=== PATIENT | male | born 1990 | race Caucasian/White ===

== ENCOUNTER 2017-05-15 21:22 | Emergency (ER) | payer OTHER ==
[2017-05-15] MEDS ORDERED: Ondansetron 4 MG Tab.DIS PO ONE (22:09)
[2017-05-15] MEDS ORDERED: Pantoprazole 40 MG Tab.CR PO SCH (22:12)
--- NOTE | 2017-05-15 22:16 | EDM.PDOC ---
ED HPI GENERAL MEDICAL PROBLEM - General Chief Complaint: Drug or Alcohol Abuse Stated Complaint: SHAKY, NOT FEELING GOOD Time Seen by Provider: 05/15/17 22:00 Source of Information: Reports: Patient History Limitations: Reports: No Limitations - History of Present Illness INITIAL COMMENTS - FREE TEXT/NARRATIVE: Rocky comes to [facility] ED with sxs of GI upset, tremors, and anxiety since a 5 day binge on ETOH over an argument with his girlfriend. He is reporting some lower abdominal pain, but no epigastric pain. He reports emesis of any fluids consumed this pm, and concerns his stomach may bleed as has happened with ETOH use in the past. He is on no prescription meds, and has tried no OTC meds for sxs relief. He denies other illicit abuse. - Related Data Allergies Allergy/AdvReac Type Severity Reaction Status Date / Time No Known Allergies Allergy Verified 05/15/17 21:46 Home Meds: Home Meds NK [No Known Home Meds] 05/15/17 [History] Past Medical History - Past Health History Medical/Surgical History: Denies Medical/Surgical History Gastrointestinal History: Reports: Gastritis Psychiatric History: Reports: Other (See Below) (ETOH abuse) Social & Family History - Tobacco Use Smoking Status *Q: Never Smoker - Caffeine Use Caffeine Use: Reports: Coffee, Energy Drinks, Soda, Tea - Recreational Drug Use Recreational Drug Use: No ED ROS GENERAL - Review of Systems Review Of Systems: See Below Constitutional: Reports: No Symptoms, Decreased Appetite HEENT: Reports: No Symptoms Respiratory: Reports: No Symptoms Cardiovascular: Reports: No Symptoms Endocrine: Reports: No Symptoms GI/Abdominal: Reports: Abdominal Pain, Nausea, Vomiting : Reports: No Symptoms Musculoskeletal: Reports: No Symptoms Skin: Reports: No Symptoms Neurological: Reports: No Symptoms Psychiatric: Reports: Anxiety Hematologic/Lymphatic: Reports: No Symptoms Immunologic: Reports: No Symptoms ED EXAM, GENERAL - Physical Exam Exam: See Below Exam Limited By: No Limitations General Appearance: Alert, WD/WN, No Apparent Distress, Anxious Eye Exam: Bilateral Eye: Normal Inspection, PERRL Ears: Normal External Exam Nose: Normal Inspection Throat/Mouth: Normal Inspection, Normal Oropharynx Head: Normocephalic Neck: Normal Inspection, Supple, Non-Tender Respiratory/Chest: No Respiratory Distress, Lungs Clear, Normal Breath Sounds Cardiovascular: Regular Rate, Rhythm GI/Abdominal: Normal Bowel Sounds, Soft, Non-Tender, No Organomegaly, No Distention, No Mass (Male) Exam: Deferred Rectal (Males) Exam: Deferred Back Exam: Normal Inspection Extremities: Normal Inspection Neurological: Alert, Oriented, CN II-XII Intact, Normal Gait, No Motor/Sensory Deficits Psychiatric: Normal Affect, Anxious Skin Exam: Warm, Dry, Intact Lymphatic: No Adenopathy Course - Vital Signs Text/Narrative:: Following assession at the [facility] ED, Rocky was administered Zofran 4mg ODT and Protonix 40 mg po pending results of UA and drug screen, positive for cannabis. He remained clinically stable and took oral fluids without difficulty. Last Recorded V/S: Last Vital Signs Temp 36.8 C 05/15/17 21:56 Pulse 89 05/15/17 21:56 Resp 20 05/15/17 21:56 BP 154/106 H 05/15/17 21:56 Pulse Ox 98 05/15/17 21:56 - Orders/Labs/Meds Orders: Active Orders 24 hr Category Date Time Status Pantoprazole [ProTONIX] Med 05/15/17 22:12 Active 40 mg PO 0600 Medication Orders Pantoprazole Sodium (Protonix) 40 mg PO 0600 ALISTAIR Last Admin: 05/15/17 22:20 Dose: 40 mg Labs: Laboratory Tests 05/15/17 05/15/17 Range/Units 22:10 22:10 Urine Color [place] (YELLOW) Urine Appearance Slightly cloudy (CLEAR) Urine pH 5.0 (5.0-6.5) Ur Specific [place] 1.020 (1.010-1.025) Urine Protein 30 H (NEGATIVE) mg/dL Urine Glucose (UA) Normal (NEGATIVE) mg/dL Urine Ketones 15 H (NEGATIVE) mg/dL Urine Occult Blood Negative (NEGATIVE) Urine Nitrite Negative (NEGATIVE) Urine Bilirubin Small H (NEGATIVE) Urine Urobilinogen 4 H (NEGATIVE) mg/dL Ur Leukocyte Esterase Small H (NEGATIVE) Urine RBC 0-5 (0) Urine WBC 0-5 (0) Ur Squamous Epith Cells Occasional (NS,R,O) Urine Bacteria Few H (NS) Urine Mucus Many H (NS) Urine Opiates Screen Negative (NEGATIVE) Ur Oxycodone Screen Negative (NEGATIVE) Ur Propoxyphene Screen Negative (NEGATIVE) Ur Barbituates Screen Negative (NEGATIVE) Ur Tricyclics Screen Negative (NEGATIVE) Ur Phencyclidine Scrn Negative (NEGATIVE) Ur Amphetamine Screen Negative (NEGATIVE) Urine MDMA Screen Negative (NEGATIVE) U Benzodiazepines Scrn Negative (NEGATIVE) U Cocaine Metab Screen Negative (NEGATIVE) U Marijuana (THC) Screen Positive H (NEGATIVE) Meds: Medications Generic Name Dose Route Start Last Admin Trade Name Freq PRN Reason Stop Dose Admin Pantoprazole Sodium 40 mg 05/15/17 22:12 05/15/17 22:20 Protonix PO 40 mg 0600 ALISTAIR Administration Discontinued Medications Generic Name Dose Route Start Last Admin Trade Name Freq PRN Reason Stop Dose Admin Ondansetron HCl 4 mg 05/15/17 22:09 05/15/17 22:20 Zofran Odt PO 05/15/17 22:10 4 mg ONETIME ONE Administration Pantoprazole Sodium 40 mg 05/16/17 06:00 Protonix PO 0600 ALISTAIR Departure - Departure Time of Disposition: 22:35 Disposition: Home, Self-Care 01 Condition: Good Clinical Impression: Alcohol abuse Alcoholic gastritis Qualifiers: Chronicity: unspecified Gastritis bleeding: without bleeding Qualified Code(s) : K29.20 - Alcoholic gastritis without bleeding - Discharge Information Instructions: Gastritis, Adult, [id number] Referrals: PCP,None [Primary Care Provider] - Forms: ED Department Discharge Additional Instructions: Take sips of fluid. Do not drink any alcohol. Follow-up with PCP as needed. - Problem List & Annotations (1) Alcohol abuse SNOMED Code(s): 18980271 Code(s): F10.10 - ALCOHOL ABUSE, UNCOMPLICATED Status: Acute Current Visit: Yes Annotation/Comment:: Follow up with AA. (2) Alcoholic gastritis SNOMED Code(s): 8038069 Code(s): K29.20 - ALCOHOLIC GASTRITIS WITHOUT BLEEDING Status: Acute Current Visit: Yes Annotation/Comment:: Sips and chips tonight, advance diet as tolerated tomorow. Qualifiers: Chronicity: unspecified Gastritis bleeding: without bleeding Qualified Code(s): K29.20 - Alcoholic gastritis without bleeding - Problem List Review Problem List Initiated/Reviewed/Updated: Yes - My Orders Last 24 Hours: My Active Orders 05/15/17 22:12 Pantoprazole [ProTONIX] 40 mg PO 0600 - Assessment/Plan Last 24 Hours: My Active Orders 05/15/17 22:12 Pantoprazole [ProTONIX] 40 mg PO 0600 Plan: A note for work was provided. Follow up with PCP if needed.
[2017-05-16] MEDS ORDERED: Pantoprazole 40 MG Tab.CR PO SCH (06:00)
== END 2017-05-15 22:39 | disposition home or self-care (01) ==
LOC: FB.ED 21:22
DX: K29.20 Alcoholic gastritis without bleeding (principal); F10.10 Alcohol abuse, uncomplicated
CPT/HCPCS: 80305; 81001; 99284; A9270

== ENCOUNTER → 2018-08-09 | Emergency (ER) | payer OTHER | LOC: FB.ED 14:39 | DX: Z53.21 Procedure and treatment not carried out due to patient leaving prior to being seen by health care provider (principal) ==

== ENCOUNTER 2018-08-10 06:13 | Emergency (ER) | payer OTHER ==
--- NOTE | 2018-08-10 06:42 | EDM.PDOC ---
ED HPI GENERAL MEDICAL PROBLEM - General Chief Complaint: General Stated Complaint: BP HIGH,IRREGULAR HEARTBEAT Time Seen by Provider: 08/10/18 06:33 Source of Information: Reports: Patient History Limitations: Reports: Intoxication - History of Present Illness INITIAL COMMENTS - FREE TEXT/NARRATIVE: 27 y.o.w.m came to the ed this am because of insomnia since 1 am today. 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 He was referred to the walk in clinic in order to prevent an ED charge, as per advice from the Hospitalist. No N/V/D, no dizziness no chest pain or any other acute medical issues. BP 122/78 Pulse 71 RR 17 Pulse ox 100% on RA. Temp 36.8 Onset Date: 08/10/18 Onset Time: 01:00 Duration: Hour(s): Location: Reports: Generalized Severity: Mild Improves with: Reports: None Worsens with: Reports: None Context: Reports: Other (pt asaid he was bench drinking, unable to sleep since 1 am, had palpitations) Associated Symptoms: Reports: No Other Symptoms - Related Data Allergies Allergy/AdvReac Type Severity Reaction Status Date / Time No Known Allergies Allergy Verified 08/10/18 06:32 Home Meds: Home Meds NK [No Known Home Meds] 05/28/18 [History] Past Medical History Gastrointestinal History: Reports: Gastritis Psychiatric History: Reports: Other (See Below) (ETOH abuse) Other Psychiatric History: has been drinking heavily x past 4 days. Endocrine/Metabolic History: Reports: Obesity/BMI 30+ Social & Family History - Family History Family Medical History: Noncontributory - Caffeine Use Caffeine Use: Reports: Coffee ED ROS GENERAL - Review of Systems Review Of Systems: See Below Constitutional: Reports: No Symptoms HEENT: Reports: No Symptoms Respiratory: Reports: No Symptoms Cardiovascular: Reports: Palpitations Endocrine: Reports: No Symptoms GI/Abdominal: Reports: No Symptoms : Reports: No Symptoms Musculoskeletal: Reports: No Symptoms Skin: Reports: No Symptoms Neurological: Reports: No Symptoms Psychiatric: Reports: No Symptoms Hematologic/Lymphatic: Reports: No Symptoms Immunologic: Reports: No Symptoms ED EXAM, GENERAL - Physical Exam Exam: See Below Exam Limited By: No Limitations General Appearance: Alert, WD/WN, No Apparent Distress Eye Exam: Bilateral Eye: Normal Inspection Ears: Normal External Exam Ear Exam: Bilateral Ear: Auricle Normal Nose: Normal Inspection, Normal Mucosa, No Blood Throat/Mouth: Normal Lips, Normal Voice, No Airway Compromise Head: Atraumatic, Normocephalic Neck: Normal Inspection, Supple, Non-Tender, Full Range of Motion Respiratory/Chest: No Respiratory Distress, Lungs Clear, Normal Breath Sounds, Chest Non-Tender Cardiovascular: Normal Peripheral Pulses, Regular Rate, Rhythm, No Edema, No Gallop Peripheral Pulses: 1+: Brachial (R) GI/Abdominal: Normal Bowel Sounds, Soft, Non-Tender, No Organomegaly, No Mass, Pelvis Stable (Male) Exam: Deferred Rectal (Males) Exam: Deferred Back Exam: Normal Inspection, Full Range of Motion Extremities: Normal Inspection, Normal Range of Motion, Non-Tender, No Pedal Edema Neurological: Alert, Oriented, CN II-XII Intact, Normal Cognition, Normal Gait Psychiatric: Normal Affect, Normal Mood Skin Exam: Warm, Dry, Intact, Normal Color, No Rash Lymphatic: No Adenopathy Course - Vital Signs Text/Narrative:: 27 y.o.w.m came to the ed this am because of insomnia since 1 am today. 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 He was referred to the walk in clinic in order to prevent an ED charge, as per advice from the Hospitalist. No N/V/D, no dizziness no chest pain or any other acute medical issues. BP 122/78 Pulse 71 RR 17 Pulse ox 100% on RA. Temp 36.8 PE: WNWD W M in NAD C/O Hear palpitation after drinking, was ambulating well, requesting I.V fluids Labs: refused ECG: refused Impression: H/O ETOH abuse, H/O insomnia, eloped from the ED Tx: refused Reexam: After the pt was examined, he said "safe your ECG" and eloped from the ED Plan: Left AMA without signing the AMA form the ED Last Recorded V/S: Last Vital Signs Temp 36.8 C 08/10/18 06:33 Pulse Resp 17 08/10/18 06:33 BP 122/78 08/10/18 06:33 Pulse Ox 100 08/10/18 06:33 Departure - Departure Time of Disposition: 06:42 Disposition: Against Medical Advice 07 Condition: Good Clinical Impression: Insomnia Qualifiers: Insomnia type: unspecified Qualified Code(s): G47.00 - Insomnia, unspecified - Discharge Information Referrals: PCP,None [Primary Care Provider] - Forms: ED Department Discharge
== END 2018-08-10 06:37 | disposition left against medical advice (07) ==
LOC: FB.ED 06:13
DX: G47.00 Insomnia, unspecified (principal); F10.10 Alcohol abuse, uncomplicated
CPT/HCPCS: 99284

== ENCOUNTER 2018-09-14 10:43 | Inpatient (IN) | payer OTHER ==
[2018-09-14] MEDS ORDERED: Ondansetron 4 MG/2 ML SDV IVPUSH ONE (10:47)
[2018-09-14] MEDS ORDERED: Pantoprazole 40 MG Vial IVPUSH ONE (10:48)
[2018-09-14] MEDS ORDERED: LORazepam 2 MG/ML SDV IVPUSH ONE (10:51)
--- NOTE | 2018-09-14 10:51 | EDM.PDOC ---
ED HPI GENERAL MEDICAL PROBLEM - General Chief Complaint: Gastrointestinal Problem Stated Complaint: VOMITING BLOOD Time Seen by Provider: 09/14/18 10:49 Source of Information: Reports: Patient, EMS History Limitations: Reports: No Limitations - History of Present Illness INITIAL COMMENTS - FREE TEXT/NARRATIVE: Patient presents with coffee ground emesis x 3, onset today. Denies abdominal pain. Has been drinking whiskey 1L per day x 8 days. Patient feels tremulous. Last EtOH intake was last night. No prior h/o GI bleed, has never had an endoscopy. Onset: Today Duration: Day(s): (1) - Related Data Allergies Allergy/AdvReac Type Severity Reaction Status Date / Time No Known Allergies Allergy Verified 09/14/18 10:51 Home Meds: Home Meds NK [No Known Home Meds] 05/28/18 [History] Past Medical History Cardiovascular History: Denies: CAD Gastrointestinal History: Denies: GI Bleed Psychiatric History: Reports: Other (See Below) (h/o alcohol abuse, was admitted to detox 3 years ago) Social & Family History - Family History Family Medical History: Noncontributory - Tobacco Use Smoking Status *Q: Never Smoker - Caffeine Use Caffeine Use: Reports: Coffee - Alcohol Use Alcohol Use Frequency: Binges - Recreational Drug Use Recreational Drug Use: No ED ROS GENERAL - Review of Systems Review Of Systems: ROS reveals no pertinent complaints other than HPI. ED EXAM, GI/ABD - Physical Exam Exam: See Below Exam Limited By: No Limitations General Appearance: Alert, Other (appears tremulous) Ears: Normal External Exam Nose: Normal Inspection Throat/Mouth: No Airway Compromise Head: Atraumatic, Normocephalic Neck: Full Range of Motion Respiratory/Chest: No Respiratory Distress, Lungs Clear, Normal Breath Sounds Cardiovascular: Regular Rate, Rhythm, No Murmur GI/Abdominal Exam: Normal Bowel Sounds, Soft, Non-Tender, No Organomegaly, No Distention Back Exam: Full Range of Motion Extremities: Normal Inspection Neurological: Alert, Normal Cognition, No Motor/Sensory Deficits Psychiatric: Anxious Skin Exam: Warm, Dry, Intact, Normal Color EKG INTERPRETATION EKG Date: 09/14/18 Time: 11:11 Rhythm: NSR Rate (Beats/Min): 74 [place]: Normal P-Wave: Present QRS: Normal ST-T: Other (ST elevation, early repolarization pattern) Course - Vital Signs Last Recorded V/S: Last Vital Signs Temp 37.0 C 09/14/18 10:43 Pulse 93 09/14/18 10:43 Resp 18 09/14/18 10:43 BP 136/88 09/14/18 10:43 Pulse Ox 98 09/14/18 10:43 - Orders/Labs/Meds Orders: Active Orders 24 hr Category Date Time Status Admission Status [Patient Status] [ADT] Routine ADT 09/14/18 11:54 Ordered Cardiac Monitoring [RC] CONTINUOUS Care 09/14/18 11:54 Ordered EKG Documentation Completion [RC] ASDIRECTED Care 09/14/18 10:46 Active TYPE AND SCREEN [BBK] Stat Lab 09/14/18 10:55 Received MVI, Adult with Vitamin K [Infuvite Adult] 10 ml Med 09/14/18 11:00 Active Thiamine [Vitamin B-1] 100 mg Folic Acid 1 mg Magnesium Sulfate [Magnesium Sulfate 50%] 2 gm Sodium Chloride 0.9% [Normal Saline] 1,000 ml IV ASDIRECTED Pantoprazole [ProTONIX IV] 80 mg Med 09/14/18 11:00 Active Sodium Chloride 0.9% [Normal Saline] 100 ml IV .Continuous Sodium Chloride 0.9% [Saline Flush] Med 09/14/18 10:51 Active 10 ml FLUSH ASDIRECTED PRN Saline Lock Insert [OM.PC] Routine Oth 09/14/18 10:51 Ordered EKG 12 Lead [EK] Routine Ther 09/14/18 10:45 Ordered Medication Orders Multivitamins/Minerals 10 ml/Thiamine HCl 100 mg/ Folic Acid 1 mg/ Magnesium Sulfate 2 gm/ Sodium Chloride 1,015.2 mls @ 500 mls/hr IV ASDIRECTED ALISTAIR Last Admin: 09/14/18 11:38 Dose: 500 mls/hr Pantoprazole Sodium 80 mg/ (Sodium Chloride) 100 mls @ 10 mls/hr IV .Continuous ALISTAIR Last Admin: 09/14/18 11:26 Dose: 10 mls/hr Sodium Chloride (Saline Flush) 10 ml FLUSH ASDIRECTED PRN PRN Reason: Keep Vein Open Last Admin: 09/14/18 11:18 Dose: 10 ml Admin: 09/14/18 11:06 Dose: 10 ml Admin: 09/14/18 11:05 Dose: 10 ml Labs: Laboratory Tests 09/14/18 09/14/18 09/14/18 Range/Units 10:55 10:55 10:55 WBC 4.7 (4.5-12.0) X10-3/uL RBC 4.86 (4.30-5.75) x10(6)uL Hgb 14.3 (13.5-17.8) g/dL Hct 42.9 (30.0-51.3) % MCV 88.2 (80-96) fL MCH 29.5 (27.7-33.6) pg MCHC 33.4 (32.2-35.4) g/dL RDW 14.0 (11.5-15.5) % Plt Count 228 (125-369) X10(3)uL MPV 7.6 (7.4-10.4) fL Neut % (Auto) 58.6 (46-82) % Lymph % (Auto) 33.9 (13-37) % [place] % (Auto) 4.6 (4-12) % Eos % (Auto) 2 (1.0-5.0) % Baso % (Auto) 1 (0-2) % Neut # (Auto) 2.8 (1.6-8.3) # Lymph # (Auto) 1.6 (0.6-5.0) # [place] # (Auto) 0.2 (0.0-1.3) # Eos # (Auto) 0.1 (0.0-0.8) # Baso # (Auto) 0.0 (0.0-0.2) # PT (8.7-11.1) INR (0.89-1.13) Sodium 141 (135-145) mmol/L Potassium 3.6 (3.5-5.3) mmol/L Chloride 102 (100-110) mmol/L Carbon Dioxide 27 (21-32) mmol/L BUN 13 (7-18) mg/dL Creatinine 0.8 (0.70-1.30) mg/dL Est Cr Clr Drug Dosing TNP Estimated GFR (MDRD) > 60 (>60) BUN/Creatinine Ratio 16.3 (9-20) Glucose 104 (80-116) mg/dL Calcium 8.1 L (8.6-10.2) mg/dL Magnesium 1.7 L (1.8-2.5) mg/dL Total Bilirubin 0.6 (0.1-1.3) mg/dL AST 20 D (5-25) IU/L ALT 24 D (12-36) U/L Alkaline Phosphatase 79 (56-112) IU/L Total Protein 7.1 (6.0-8.0) g/dL Albumin 3.9 (3.5-5.2) g/dL Globulin 3.2 g/dL Albumin/Globulin Ratio 1.2 Ethyl Alcohol 0.09 H (<0.03) % 09/14/18 Range/Units 10:55 WBC (4.5-12.0) X10-3/uL RBC (4.30-5.75) x10(6)uL Hgb (13.5-17.8) g/dL Hct (30.0-51.3) % MCV (80-96) fL MCH (27.7-33.6) pg MCHC (32.2-35.4) g/dL RDW (11.5-15.5) % Plt Count (125-369) X10(3)uL MPV (7.4-10.4) fL Neut % (Auto) (46-82) % Lymph % (Auto) (13-37) % [place] % (Auto) (4-12) % Eos % (Auto) (1.0-5.0) % Baso % (Auto) (0-2) % Neut # (Auto) (1.6-8.3) # Lymph # (Auto) (0.6-5.0) # [place] # (Auto) (0.0-1.3) # Eos # (Auto) (0.0-0.8) # Baso # (Auto) (0.0-0.2) # PT 10.3 (8.7-11.1) INR 1.06 (0.89-1.13) Sodium (135-145) mmol/L Potassium (3.5-5.3) mmol/L Chloride (100-110) mmol/L Carbon Dioxide (21-32) mmol/L BUN (7-18) mg/dL Creatinine (0.70-1.30) mg/dL Est Cr Clr Drug Dosing Estimated GFR (MDRD) (>60) BUN/Creatinine Ratio (9-20) Glucose (80-116) mg/dL Calcium (8.6-10.2) mg/dL Magnesium (1.8-2.5) mg/dL Total Bilirubin (0.1-1.3) mg/dL AST (5-25) IU/L ALT (12-36) U/L Alkaline Phosphatase (56-112) IU/L Total Protein (6.0-8.0) g/dL Albumin (3.5-5.2) g/dL Globulin g/dL Albumin/Globulin Ratio Ethyl Alcohol (<0.03) % Meds: Medications Generic Name Dose Route Start Last Admin Trade Name Freq PRN Reason Stop Dose Admin Multivitamins/Minerals 10 ml/ 1,015.2 mls @ 500 mls/hr 09/14/18 11:00 11:38 Thiamine HCl 100 mg/ Folic IV 500 mls/hr Acid 1 mg/ Magnesium Sulfate 2 ASDIRECTED ALISTAIR Administration gm/ Sodium Chloride Pantoprazole Sodium 80 mg/ 100 mls @ 10 mls/hr 09/14/18 11:00 09/14/18 11:26 Sodium Chloride IV 10 mls/hr .Continuous ALISTAIR Administration Sodium Chloride 10 ml 09/14/18 10:51 09/14/18 11:18 Saline Flush FLUSH 10 ml ASDIRECTED PRN Administration Keep Vein Open Discontinued Medications Generic Name Dose Route Start Last Admin Trade Name Freq PRN Reason Stop Dose Admin Lorazepam 1 mg 09/14/18 10:51 09/14/18 10:57 Ativan IVPUSH 09/14/18 10:52 1 mg .ONCE ONE Administration Ondansetron HCl 4 mg 09/14/18 10:47 09/14/18 10:59 Zofran IVPUSH 09/14/18 10:48 4 mg ONETIME ONE Administration Pantoprazole Sodium 80 mg 09/14/18 10:48 09/14/18 11:03 Protonix Iv IVPUSH 09/14/18 10:49 80 mg .BOLUS ONE Administration - Re-Assessments/Exams Free Text/Narrative Re-Assessment/Exam: 09/14/18 11:[address] Lan, will consult and do EGD tomorrow morning. Will admit to [facility] hospitalist service, Dr. Maldonado. Departure - Departure Time of Disposition: 11:59 Disposition: Refer to Observation Clinical Impression: Gastrointestinal hemorrhage Qualifiers: GI bleed type/associated pathology: gastrointestinal hemorrhage with hematemesis Qualified Code(s): K92.0 - Hematemesis Alcohol withdrawal Qualifiers: Complication of substance-induced condition: uncomplicated Qualified Code(s): F10.230 - Alcohol dependence with withdrawal, uncomplicated - Discharge Information *PRESCRIPTION DRUG MONITORING PROGRAM REVIEWED*: No *COPY OF PRESCRIPTION DRUG MONITORING REPORT IN PATIENT SALEEM: Not Applicable Referrals: PCP,None [Primary Care Provider] - Forms: ED Department Discharge - My Orders Last 24 Hours: My Active Orders 09/14/18 10:45 EKG 12 Lead [EK] Routine 09/14/18 10:46 EKG Documentation Completion [RC] ASDIRECTED 09/14/18 10:51 Sodium Chloride 0.9% [Saline Flush] 10 ml FLUSH ASDIRECTED PRN Saline Lock Insert [OM.PC] Routine 09/14/18 10:55 TYPE AND SCREEN [BBK] Stat 09/14/18 11:00 MVI, Adult with Vitamin K [Infuvite Adult] 10 ml Thiamine [Vitamin B-1] 100 mg Folic Acid 1 mg Magnesium Sulfate [Magnesium Sulfate 50%] 2 gm Sodium Chloride 0.9% [Normal Saline] 1,000 ml IV ASDIRECTED Pantoprazole [ProTONIX IV] 80 mg Sodium Chloride 0.9% [Normal Saline] 100 ml IV .Continuous 09/14/18 11:54 Admission Status [Patient Status] [ADT] Routine Cardiac Monitoring [RC] CONTINUOUS - Assessment/Plan Last 24 Hours: My Active Orders 09/14/18 10:45 EKG 12 Lead [EK] Routine 09/14/18 10:46 EKG Documentation Completion [RC] ASDIRECTED 09/14/18 10:51 Sodium Chloride 0.9% [Saline Flush] 10 ml FLUSH ASDIRECTED PRN Saline Lock Insert [OM.PC] Routine 09/14/18 10:55 TYPE AND SCREEN [BBK] Stat 09/14/18 11:00 MVI, Adult with Vitamin K [Infuvite Adult] 10 ml Thiamine [Vitamin B-1] 100 mg Folic Acid 1 mg Magnesium Sulfate [Magnesium Sulfate 50%] 2 gm Sodium Chloride 0.9% [Normal Saline] 1,000 ml IV ASDIRECTED Pantoprazole [ProTONIX IV] 80 mg Sodium Chloride 0.9% [Normal Saline] 100 ml IV .Continuous 09/14/18 11:54 Admission Status [Patient Status] [ADT] Routine Cardiac Monitoring [RC] CONTINUOUS
[2018-09-14] MEDS ORDERED: MVI, Adult with Vitamin K 10 ML, Thiamine 100 MG, Folic Acid 1 MG, Magnesium Sulfate 2 ... IV SCH ×5 (11:00)
[2018-09-14] MEDS ORDERED: Pantoprazole 80 MG in Sodium Chloride 0.9% 100 ML IV SCH (11:00)
[2018-09-14] MEDS: Sodium Chloride 0.9% 10 ML Syringe FLUSH PRN ×3 (11:05→11:18)
[2018-09-14] MEDS ORDERED: Midazolam 1 MG/ML 2 ML SDV IV ONE (11:14)
[2018-09-14] MEDS ORDERED: Propofol 200 MG/20 ML SDV IV ONE (11:14)
[2018-09-14] MEDS ORDERED: Lidocaine 2% 100 MG/5 ML Syringe IVPUSH ONE (11:14)
[2018-09-14] MEDS ORDERED: Ondansetron 4 MG/2 ML SDV IVPUSH PRN (12:20)
[2018-09-14] MEDS ORDERED: LORazepam 2 MG/ML SDV IV SCH (12:30)
[2018-09-14] MEDS: Sodium Chloride 0.9% 1,000 ML IV SCH (14:05)
--- NOTE | 2018-09-14 15:50 | PCM.HP ---
H&P History of Present Illness - General Date of Service: 09/14/18 Admit Problem/Dx: Admission Diagnosis/Problem Admission Diagnosis/Problem Gastrointestinal hemorrhage Source of Information: Patient - History of Present Illness Initial Comments - Free Text/Narative: Rocky is a 27 years old male with PMHx of alcohol use disorder, anxiety and depression who presented to ER today with vomiting blood. Patient has been drinking wiskey, beer, and vodka for the last few days, his last drink was around 3 am this morning (09/14/2018). her reports waking up around 8 am, and start vomiting. he noticed dark blood/coffee ground in his vomit. He reports that he vomited twice this morning. he denies abdominal pain. reports nausea, but no vomiting since this morning. he endorse shaking, anxiety and difficultly sleeping. he reports not taking any illicit drugs. he is generally healthy. He denies any previous similar symptoms. he denies withdrawal seizure. Onset of Symptoms: Reports: Today - Related Data Allergies/Adverse Reactions: Allergies Allergy/AdvReac Type Severity Reaction Status Date / Time No Known Allergies Allergy Verified 09/14/18 10:51 Home Medications: Home Meds NK [No Known Home Meds] 05/28/18 [History] Past Medical History - Past Health History Medical/Surgical History: Denies Medical/Surgical History Cardiovascular History: Denies: CAD Gastrointestinal History: Reports: Jaundice, Other (See Below) Other Gastrointestinal History: liver damage Psychiatric History: Reports: Addiction, Other (See Below) Other Psychiatric History: has had IP admission for alcohol abuse Endocrine/Metabolic History: Reports: Obesity/BMI 30+ Social & Family History - Family History Family Medical History: Noncontributory - Tobacco Use Smoking Status *Q: Never Smoker - Caffeine Use Caffeine Use: Reports: Coffee - Alcohol Use Date of Last Drink: 09/13/18 - Recreational Drug Use Recreational Drug Use: No H&P Review of Systems - Review of Systems: Review Of Systems: See Below HEENT: Reports: No Symptoms Pulmonary: Reports: No Symptoms Cardiovascular: Reports: No Symptoms Gastrointestinal: Reports: Hematemesis, Nausea, Vomiting Genitourinary: Reports: No Symptoms Musculoskeletal: Reports: No Symptoms Skin: Reports: No Symptoms Psychiatric: Reports: Depression, Anxiety Neurological: Reports: No Symptoms Hematologic/Lymphatic: Reports: No Symptoms Immunologic: Reports: No Symptoms Exam - Exam Exam: See Below - Vital Signs Vital Signs: Last Vital Signs Temp 36.8 C 09/14/18 12:40 Pulse 93 09/14/18 10:43 Resp 17 09/14/18 12:40 BP 129/87 09/14/18 12:40 Pulse Ox 98 09/14/18 12:40 Weight: 94.302 kg - Exam General: Alert, Oriented, Cooperative HEENT: PERRLA, Conjunctiva Clear, EOMI, Mucosa Moist & [place], Pupils Equal, Pupils Reactive Neck: Supple Lungs: Clear to Auscultation, Normal Respiratory Effort Cardiovascular: Regular Rate, Regular Rhythm GI/Abdominal Exam: Normal Bowel Sounds, Soft, Non-Tender, No Organomegaly, No Distention Back Exam: Normal Inspection, Full Range of Motion Extremities: Normal Inspection, Normal Range of Motion, Non-Tender, No Pedal Edema, Normal Capillary Refill Skin: Warm Neurological: Strength Equal Bilateral, Normal Speech, Normal Tone Neuro Extensive - Mental Status: Alert, Oriented x3, Normal Mood/Affect Psychiatric: Alert, Anxious - Patient Data Lab Results Last 24 hrs: Laboratory Results - last 24 hr 09/14/18 09/14/18 09/14/18 Range/Units 10:55 10:55 10:55 WBC 4.7 (4.5-12.0) X10-3/uL RBC 4.86 (4.30-5.75) x10(6)uL Hgb 14.3 (13.5-17.8) g/dL Hct 42.9 (30.0-51.3) % MCV 88.2 (80-96) fL MCH 29.5 (27.7-33.6) pg MCHC 33.4 (32.2-35.4) g/dL RDW 14.0 (11.5-15.5) % Plt Count 228 (125-369) X10(3)uL MPV 7.6 (7.4-10.4) fL Neut % (Auto) 58.6 (46-82) % Lymph % (Auto) 33.9 (13-37) % [place] % (Auto) 4.6 (4-12) % Eos % (Auto) 2 (1.0-5.0) % Baso % (Auto) 1 (0-2) % Neut # (Auto) 2.8 (1.6-8.3) # Lymph # (Auto) 1.6 (0.6-5.0) # [place] # (Auto) 0.2 (0.0-1.3) # Eos # (Auto) 0.1 (0.0-0.8) # Baso # (Auto) 0.0 (0.0-0.2) # PT (8.7-11.1) INR (0.89-1.13) Sodium 141 (135-145) mmol/L Potassium 3.6 (3.5-5.3) mmol/L Chloride 102 (100-110) mmol/L Carbon Dioxide 27 (21-32) mmol/L BUN 13 (7-18) mg/dL Creatinine 0.8 (0.70-1.30) mg/dL Est Cr Clr Drug Dosing TNP Estimated GFR (MDRD) > 60 (>60) BUN/Creatinine Ratio 16.3 (9-20) Glucose 104 (80-116) mg/dL Calcium 8.1 L (8.6-10.2) mg/dL Magnesium 1.7 L (1.8-2.5) mg/dL Total Bilirubin 0.6 (0.1-1.3) mg/dL AST 20 D (5-25) IU/L ALT 24 D (12-36) U/L Alkaline Phosphatase 79 (56-112) IU/L Total Protein 7.1 (6.0-8.0) g/dL Albumin 3.9 (3.5-5.2) g/dL Globulin 3.2 g/dL Albumin/Globulin Ratio 1.2 Ethyl Alcohol 0.09 H (<0.03) % Blood Type Gel Antibody Screen 09/14/18 09/14/18 Range/Units 10:55 10:55 WBC (4.5-12.0) X10-3/uL RBC (4.30-5.75) x10(6)uL Hgb (13.5-17.8) g/dL Hct (30.0-51.3) % MCV (80-96) fL MCH (27.7-33.6) pg MCHC (32.2-35.4) g/dL RDW (11.5-15.5) % Plt Count (125-369) X10(3)uL MPV (7.4-10.4) fL Neut % (Auto) (46-82) % Lymph % (Auto) (13-37) % [place] % (Auto) (4-12) % Eos % (Auto) (1.0-5.0) % Baso % (Auto) (0-2) % Neut # (Auto) (1.6-8.3) # Lymph # (Auto) (0.6-5.0) # [place] # (Auto) (0.0-1.3) # Eos # (Auto) (0.0-0.8) # Baso # (Auto) (0.0-0.2) # PT 10.3 (8.7-11.1) INR 1.06 (0.89-1.13) Sodium (135-145) mmol/L Potassium (3.5-5.3) mmol/L Chloride (100-110) mmol/L Carbon Dioxide (21-32) mmol/L BUN (7-18) mg/dL Creatinine (0.70-1.30) mg/dL Est Cr Clr Drug Dosing Estimated GFR (MDRD) (>60) BUN/Creatinine Ratio (9-20) Glucose (80-116) mg/dL Calcium (8.6-10.2) mg/dL Magnesium (1.8-2.5) mg/dL Total Bilirubin (0.1-1.3) mg/dL AST (5-25) IU/L ALT (12-36) U/L Alkaline Phosphatase (56-112) IU/L Total Protein (6.0-8.0) g/dL Albumin (3.5-5.2) g/dL Globulin g/dL Albumin/Globulin Ratio Ethyl Alcohol (<0.03) % Blood Type O POSITIVE Gel Antibody Screen Negative Result Diagrams: 09/14/18 10:55 09/14/18 10:55 EKG INTERPRETATION EKG Date: 09/14/18 - Problem List (1) Alcohol withdrawal SNOMED Code(s): 894463927 ICD Code: F10.239 - ALCOHOL DEPENDENCE WITH WITHDRAWAL, UNSPECIFIED Status : Acute Current Visit: Yes Qualifiers: Complication of substance-induced condition: uncomplicated Qualified Code(s ): F10.230 - Alcohol dependence with withdrawal, uncomplicated (2) Gastrointestinal hemorrhage SNOMED Code(s): 22364766 ICD Code: K92.2 - GASTROINTESTINAL HEMORRHAGE, UNSPECIFIED Status: Acute Current Visit: Yes Qualifiers: GI bleed type/associated pathology: gastrointestinal hemorrhage with hematemesis Qualified Code(s): K92.0 - Hematemesis (3) Alcohol abuse SNOMED Code(s): 89371927 ICD Code: F10.10 - ALCOHOL ABUSE, UNCOMPLICATED Status: Acute Current Visit: No Problem Details: Follow up with AA. Problem List Initiated/Reviewed/Updated: Yes Orders Last 24hrs: Active Orders 24 hr Category Date Time Status Admission Status [Patient Status] [ADT] Routine ADT 09/14/18 11:54 Active Ambulate [RC] 09,13,17,21 Care 09/14/18 12:17 Active Assess Neurological Status [RC] 08,16,00 Care 09/14/18 12:20 Active CIWAA Assessment [RC] 08,12,16,20,00,04 Care 09/14/18 12:20 Active Cardiac Monitoring [RC] 08,16,00 Care 09/14/18 11:54 Active Height and Weight [RC] 08 Care 09/14/18 12:15 Active Intake and Output [RC] 06,14,22 Care 09/14/18 12:16 Active Notify Provider Consults [RC] ASDIRECTED Care 09/14/18 12:22 Active Notify Provider Vital Signs [RC] ASDIRECTED Care 09/14/18 12:16 Active Notify Provider [RC] PRN Care 09/14/18 12:20 Active Oxygen Therapy [RC] PRN Care 09/14/18 12:15 Active Up ad Ro [RC] ASDIRECTED Care 09/14/18 12:15 Active Verify Patient Consent Obtain [RC] ASDIRECTED Care 09/15/18 06:00 Active Vital Signs [RC] 08,12,16,20,00,04 Care 09/14/18 12:15 Active Consult to Physician [CONS] Stat Cons 09/14/18 12:20 Ordered NPO After Midnight [Nothing per Oral After Midnight Diet 09/14/18 Dinner Active Diet] [DIET] BASIC METABOLIC PANEL,BMP [CHEM] AM Lab 09/15/18 05:11 Ordered CBC WITH AUTO DIFF [HEME] AM Lab 09/15/18 05:11 Ordered PATIENT RETYPE [BBK] Stat Lab 09/14/18 10:55 Results TYPE AND SCREEN [BBK] Stat Lab 09/14/18 10:55 Results LORazepam [Ativan] Med 09/14/18 12:30 Active See Protocol IV ASDIRECTED Ondansetron [Zofran] Med 09/14/18 12:20 Active 4 mg IVPUSH Q4H PRN Pantoprazole [ProTONIX IV] 80 mg Med 09/14/18 11:00 Active Sodium Chloride 0.9% [Normal Saline] 100 ml IV .Continuous Sodium Chloride 0.9% [Normal Saline] 1,000 ml Med 09/14/18 14:00 Active IV ASDIRECTED Sodium Chloride 0.9% [Saline Flush] Med 09/14/18 10:51 Active 10 ml FLUSH ASDIRECTED PRN Thiamine [Vitamin B-1] Med 09/15/18 09:00 Active 100 mg IVPUSH DAILY Saline Lock Insert [OM.PC] Routine Oth 09/14/18 10:51 Ordered Seizure Precautions [OM.PC] Routine Oth 09/14/18 12:20 Ordered Resuscitation Status Routine Resus Stat 09/14/18 12:15 Ordered EKG 12 Lead [EK] Routine Ther 09/14/18 10:45 Ordered Medication Orders Pantoprazole Sodium 80 mg/ (Sodium Chloride) 100 mls @ 10 mls/hr IV .Continuous ALISTAIR Last Admin: 09/14/18 11:26 Dose: 10 mls/hr Sodium Chloride (Normal Saline) 1,000 mls @ 100 mls/hr IV ASDIRECTED ALISTAIR Last Admin: 09/14/18 14:05 Dose: 100 mls/hr Lorazepam (Ativan) 0 mg IV ASDIRECTED ALISTAIR; Protocol Ondansetron HCl (Zofran) 4 mg IVPUSH Q4H PRN PRN Reason: Nausea/Vomiting Sodium Chloride (Saline Flush) 10 ml FLUSH ASDIRECTED PRN PRN Reason: Keep Vein Open Last Admin: 09/14/18 11:18 Dose: 10 ml Admin: 09/14/18 11:06 Dose: 10 ml Admin: 09/14/18 11:05 Dose: 10 ml Thiamine HCl (Vitamin B-1) 100 mg IVPUSH DAILY ALISTAIR Assessment/Plan Comment:: - Continue Zofran prn - Continue Protonix IV - PRN Ativan for alcohol withdrawal - Plan for EGD tomorrow - Repeat labs am
[2018-09-14] MEDS ORDERED: hydrOXYzine HCl 25 MG Tab ONE (20:19)
[2018-09-14] MEDS ORDERED: hydrOXYzine HCl 25 MG Tab PO PRN (20:23)
[2018-09-15] MEDS: Sodium Chloride 0.9% 1,000 ML IV SCH (00:08)
[2018-09-15] MEDS ORDERED: Thiamine 100 MG in Sodium Chloride 0.9% 50 ML IV SCH (09:00)
[2018-09-15] MEDS ORDERED: Pantoprazole 40 MG Vial IVPUSH SCH (09:00)
[2018-09-15] MEDS ORDERED: Thiamine 200 MG/2 ML MDV IVPUSH SCH (09:00)
--- NOTE | 2018-09-15 09:11 | PCM.PN ---
- General Info Date of Service: 09/15/18 Subjective Update: No withdrawal symptoms, no vomiting Functional Status: Reports: Pain Controlled - Review of Systems HEENT: Reports: No Symptoms Pulmonary: Reports: No Symptoms Cardiovascular: Reports: No Symptoms - Patient Data Vitals - Most Recent: Last Vital Signs Temp 97.6 F 09/15/18 09:00 Pulse 62 09/15/18 09:00 Resp 20 09/15/18 09:00 BP 136/88 09/15/18 09:00 Pulse Ox 98 09/15/18 09:00 Weight - Most Recent: 94.149 kg I&O - Last 24 Hours: Intake & Output 09/14/18 09/15/18 09/15/18 22:59 06:59 14:59 Intake Total 1425 Output Total 1300 Balance 125 Lab Results Last 24 Hours: Laboratory Results - last 24 hr 09/14/18 09/14/18 09/14/18 Range/Units 10:55 10:55 10:55 WBC 4.7 (4.5-12.0) X10-3/uL RBC 4.86 (4.30-5.75) x10(6)uL Hgb 14.3 (13.5-17.8) g/dL Hct 42.9 (30.0-51.3) % MCV 88.2 (80-96) fL MCH 29.5 (27.7-33.6) pg MCHC 33.4 (32.2-35.4) g/dL RDW 14.0 (11.5-15.5) % Plt Count 228 (125-369) X10(3)uL MPV 7.6 (7.4-10.4) fL Neut % (Auto) 58.6 (46-82) % Lymph % (Auto) 33.9 (13-37) % [place] % (Auto) 4.6 (4-12) % Eos % (Auto) 2 (1.0-5.0) % Baso % (Auto) 1 (0-2) % Neut # (Auto) 2.8 (1.6-8.3) # Lymph # (Auto) 1.6 (0.6-5.0) # [place] # (Auto) 0.2 (0.0-1.3) # Eos # (Auto) 0.1 (0.0-0.8) # Baso # (Auto) 0.0 (0.0-0.2) # PT (8.7-11.1) INR (0.89-1.13) Sodium 141 (135-145) mmol/L Potassium 3.6 (3.5-5.3) mmol/L Chloride 102 (100-110) mmol/L Carbon Dioxide 27 (21-32) mmol/L BUN 13 (7-18) mg/dL Creatinine 0.8 (0.70-1.30) mg/dL Est Cr Clr Drug Dosing TNP Estimated GFR (MDRD) > 60 (>60) BUN/Creatinine Ratio 16.3 (9-20) Glucose 104 (80-116) mg/dL Calcium 8.1 L (8.6-10.2) mg/dL Magnesium 1.7 L (1.8-2.5) mg/dL Total Bilirubin 0.6 (0.1-1.3) mg/dL AST 20 D (5-25) IU/L ALT 24 D (12-36) U/L Alkaline Phosphatase 79 (56-112) IU/L Total Protein 7.1 (6.0-8.0) g/dL Albumin 3.9 (3.5-5.2) g/dL Globulin 3.2 g/dL Albumin/Globulin Ratio 1.2 Ethyl Alcohol 0.09 H (<0.03) % Blood Type Gel Antibody Screen 09/14/18 09/14/18 09/15/18 Range/Units 10:55 10:55 06:25 WBC 5.0 (4.5-12.0) X10-3/uL RBC 4.64 (4.30-5.75) x10(6)uL Hgb 13.8 (13.5-17.8) g/dL Hct 41.3 (30.0-51.3) % MCV 89.1 (80-96) fL MCH 29.7 (27.7-33.6) pg MCHC 33.3 (32.2-35.4) g/dL RDW 14.1 (11.5-15.5) % Plt Count 215 (125-369) X10(3)uL MPV 7.6 (7.4-10.4) fL Neut % (Auto) 53.9 (46-82) % Lymph % (Auto) 34.3 (13-37) % [place] % (Auto) 6.7 (4-12) % Eos % (Auto) 5 (1.0-5.0) % Baso % (Auto) 1 (0-2) % Neut # (Auto) 2.8 (1.6-8.3) # Lymph # (Auto) 1.7 (0.6-5.0) # [place] # (Auto) 0.3 (0.0-1.3) # Eos # (Auto) 0.2 (0.0-0.8) # Baso # (Auto) 0.0 (0.0-0.2) # PT 10.3 (8.7-11.1) INR 1.06 (0.89-1.13) Sodium (135-145) mmol/L Potassium (3.5-5.3) mmol/L Chloride (100-110) mmol/L Carbon Dioxide (21-32) mmol/L BUN (7-18) mg/dL Creatinine (0.70-1.30) mg/dL Est Cr Clr Drug Dosing Estimated GFR (MDRD) (>60) BUN/Creatinine Ratio (9-20) Glucose (80-116) mg/dL Calcium (8.6-10.2) mg/dL Magnesium (1.8-2.5) mg/dL Total Bilirubin (0.1-1.3) mg/dL AST (5-25) IU/L ALT (12-36) U/L Alkaline Phosphatase (56-112) IU/L Total Protein (6.0-8.0) g/dL Albumin (3.5-5.2) g/dL Globulin g/dL Albumin/Globulin Ratio Ethyl Alcohol (<0.03) % Blood Type O POSITIVE Gel Antibody Screen Negative 09/15/18 Range/Units 06:25 WBC (4.5-12.0) X10-3/uL RBC (4.30-5.75) x10(6)uL Hgb (13.5-17.8) g/dL Hct (30.0-51.3) % MCV (80-96) fL MCH (27.7-33.6) pg MCHC (32.2-35.4) g/dL RDW (11.5-15.5) % Plt Count (125-369) X10(3)uL MPV (7.4-10.4) fL Neut % (Auto) (46-82) % Lymph % (Auto) (13-37) % [place] % (Auto) (4-12) % Eos % (Auto) (1.0-5.0) % Baso % (Auto) (0-2) % Neut # (Auto) (1.6-8.3) # Lymph # (Auto) (0.6-5.0) # [place] # (Auto) (0.0-1.3) # Eos # (Auto) (0.0-0.8) # Baso # (Auto) (0.0-0.2) # PT (8.7-11.1) INR (0.89-1.13) Sodium 140 (135-145) mmol/L Potassium 4.0 (3.5-5.3) mmol/L Chloride 103 (100-110) mmol/L Carbon Dioxide 29 (21-32) mmol/L BUN 9 (7-18) mg/dL Creatinine 0.9 (0.70-1.30) mg/dL Est Cr Clr Drug Dosing 116.29 Estimated GFR (MDRD) > 60 (>60) BUN/Creatinine Ratio 10.0 (9-20) Glucose 88 (80-116) mg/dL Calcium 8.5 L (8.6-10.2) mg/dL Magnesium (1.8-2.5) mg/dL Total Bilirubin (0.1-1.3) mg/dL AST (5-25) IU/L ALT (12-36) U/L Alkaline Phosphatase (56-112) IU/L Total Protein (6.0-8.0) g/dL Albumin (3.5-5.2) g/dL Globulin g/dL Albumin/Globulin Ratio Ethyl Alcohol (<0.03) % Blood Type Gel Antibody Screen Med Orders - Current: Current Medications Hydroxyzine HCl (Atarax) 25 mg PO BEDTIME PRN PRN Reason: Insomnia Last Admin: 09/14/18 21:48 Dose: 25 mg Sodium Chloride (Normal Saline) 1,000 mls @ 100 mls/hr IV ASDIRECTED ALISTAIR Last Admin: 09/15/18 00:08 Dose: 100 mls/hr Lorazepam (Ativan) 0 mg IV ASDIRECTED ALISTAIR; Protocol Ondansetron HCl (Zofran) 4 mg IVPUSH Q4H PRN PRN Reason: Nausea/Vomiting Pantoprazole Sodium (Protonix Iv) 40 mg IVPUSH Q24H [facility] Sodium Chloride (Saline Flush) 10 ml FLUSH ASDIRECTED PRN PRN Reason: Keep Vein Open Last Admin: 09/14/18 11:18 Dose: 10 ml Thiamine HCl (Vitamin B-1) 100 mg IVPUSH DAILY ALISTAIR Discontinued Medications Hydroxyzine HCl (Atarax) Confirm Administered Dose 25 mg .ROUTE .STK-MED ONE Stop: 09/14/18 20:20 Last Admin: 09/14/18 21:49 Dose: Not Given Multivitamins/Minerals 10 ml/Thiamine HCl 100 mg/ Folic Acid 1 mg/ Magnesium Sulfate 2 gm/ Sodium Chloride 1,015.2 mls @ 500 mls/hr IV ASDIRECTED ALISTAIR Last Admin: 09/14/18 11:38 Dose: 500 mls/hr Pantoprazole Sodium 80 mg/ (Sodium Chloride) 100 mls @ 10 mls/hr IV .Continuous ALISTAIR Stop: 09/14/18 20:00 Last Admin: 09/14/18 11:26 Dose: 10 mls/hr Influenza Virus Vaccine (Fluzone Quad [id number] Syringe) 60 mcg IM .ONCE ONE Stop: 09/14/18 14:01 Lorazepam (Ativan) 1 mg IVPUSH .ONCE ONE Stop: 09/14/18 10:52 Last Admin: 09/14/18 10:57 Dose: 1 mg Ondansetron HCl (Zofran) 4 mg IVPUSH ONETIME ONE Stop: 09/14/18 10:48 Last Admin: 09/14/18 10:59 Dose: 4 mg Pantoprazole Sodium (Protonix Iv) 80 mg IVPUSH .BOLUS ONE Stop: 09/14/18 10:49 Last Admin: 09/14/18 11:03 Dose: 80 mg - Exam General: Alert, Oriented HEENT: Pupils Equal Neck: Supple Neurological: No New Focal Deficit Psy/Mental Status: Alert - Problem List & Annotations (1) Alcohol withdrawal SNOMED Code(s): 026971137 Code(s): F10.239 - ALCOHOL DEPENDENCE WITH WITHDRAWAL, UNSPECIFIED Status: Acute Current Visit: Yes Qualifiers: Complication of substance-induced condition: uncomplicated Qualified Code(s ): F10.230 - Alcohol dependence with withdrawal, uncomplicated (2) Gastrointestinal hemorrhage SNOMED Code(s): 83447634 Code(s): K92.2 - GASTROINTESTINAL HEMORRHAGE, UNSPECIFIED Status: Acute Current Visit: Yes Qualifiers: GI bleed type/associated pathology: gastrointestinal hemorrhage with hematemesis Qualified Code(s): K92.0 - Hematemesis (3) Alcohol abuse SNOMED Code(s): 07467779 Code(s): F10.10 - ALCOHOL ABUSE, UNCOMPLICATED Status: Acute Current Visit: No Annotation/Comment:: Follow up with AA. (4) Alcoholic gastritis SNOMED Code(s): 9855870 Code(s): K29.20 - ALCOHOLIC GASTRITIS WITHOUT BLEEDING Status: Acute Current Visit: No Qualifiers: Chronicity: acute Gastritis bleeding: without bleeding Qualified Code(s) : K29.20 - Alcoholic gastritis without bleeding Annotation/Comment:: Sips and chips tonight, advance diet as tolerated tomorow. - Problem List Review Problem List Initiated/Reviewed/Updated: Yes - My Orders Last 24 Hours: My Active Orders 09/14/18 20:23 hydrOXYzine HCl [Atarax] 25 mg PO BEDTIME PRN - Plan Plan:: EGD was neg for active GI bleed.Mild gastritis. DC home on PPI.
--- NOTE | 2018-09-15 09:34 | OR ---
DATE OF OPERATION: 09/15/2018 SURGEON: Partha Lan MD PREOPERATIVE DIAGNOSIS: Hematemesis. POSTOPERATIVE DIAGNOSES: 1. Gastritis of the fundus. 2. Distal esophagitis. PROCEDURE: EGD. ANESTHESIA: IV sedation. DESCRIPTION OF PROCEDURE: The patient was brought to the procedure room, where he was placed on his left side and IV sedation administered. Oral bite block was placed, and the upper endoscope advanced into the esophagus under direct vision without difficulty. Vocal cords were viewed and were normal. Scope was advanced to the third portion of the duodenum. The duodenum and pylorus were normal. Antrum and body of the stomach were normal. Retroflexion revealed some mild gastritis in the fundus that was likely the source of the bleeding, but there was no active bleeding or clot present. Lower esophageal sphincter was loose. There were a couple of columns of inflammation in the distal esophagus extending for 1 cm, consistent with reflux esophagitis. There was no evidence of bleeding from here. No biopsies were taken. Air was removed, and the scope withdrawn. The patient tolerated the procedure well and returned to Recovery in a stable condition. Findings were discussed with Dr. Maldonado. The patient has been stable for 24 hours without any further hematemesis and should be ready for discharge. /[id number] SIA/GEOVANNA
--- NOTE | 2018-09-15 09:38 | DISCH ---
DISCHARGE DATE: 09/15/2018 REASON FOR ADMISSION: 1. Gastrointestinal hemorrhage. 2. Alcohol withdrawal. 3. Alcohol abuse. DISCHARGE DIAGNOSES: 1. Acute alcoholic gastritis. 2. Alcohol abuse. PROCEDURE: EGD by Dr. Lan. Please see his note for findings. BRIEF HISTORY AND HOSPITAL COURSE: This 27-year-old was admitted after vomiting twice fresh blood. Had stable hemoglobin and vital signs, admitted for EGD, that was done this morning. He is stable with no obvious signs of withdrawal and discharged home on oral Prilosec 20 mg a day after above findings. I spent less than 30 minutes in the discharge of the patient. /[id number] MAURY/GEOVANNA
== END 2018-09-15 11:15 | disposition home or self-care (01) | DRG 378 ==
LOC: FB.ED 10:43 → FB.MS 12:12
PROVIDERS: ADMIT Family Medicine; ATTEND Family Medicine
PROC: 0DJ08ZZ Inspection of Upper Intestinal Tract, Via Natural or Artificial Opening Endoscopic (ICD-10-PCS; principal; 2018-09-15)
PROC: 3E02340 Introduction of Influenza Vaccine into Muscle, Percutaneous Approach (ICD-10-PCS; 2018-09-15)
DX: K29.21 Alcoholic gastritis with bleeding (principal); F10.230 Alcohol dependence with withdrawal, uncomplicated; Y90.0 Blood alcohol level of less than 20 mg/100 ml; Z23 Encounter for immunization
CPT/HCPCS: 36415; 80048; 80053; 83735; 85025; 85610; 86850; 86900; 86901; 90686; 93005; A9270-GY; C9113; G0480; J2060; J2405; J3411; J3475; J3490; J7030